=== PATIENT | female | born 1970 | race Caucasian/White ===

== ENCOUNTER 2024-01-09 16:19 | Emergency (ER) | payer MEDICAID ==
[~2024-01-09] VITALS: Ht 160 cm; Wt 68.0 kg
[2024-01-09 16:28] VITALS: TEMP 98.1
[2024-01-09] MEDS ORDERED: LORazepam 2 mg/ml vial IM ONE (16:50)
[2024-01-09] MEDS: proCHLORperazine 10 MG/2 ml inj IM ONE (17:03)
[2024-01-09] MEDS: LORazepam 1 MG tablet PO ONE (17:04)
[2024-01-09] MEDS: diphenhydrAMINE 50 mg/ml inj IM ONE (17:04)
[2024-01-09] MEDS ORDERED: iohexol 350MG/ML 100ml bottle IV ONE ×2 (18:13→18:24)
[2024-01-09 18:27] LABS: BASOPHILS # (AUTO) 0.1 X10'3 (0-0.2); BASOPHILS % (AUTO) 0.5 % (0-1); EOSINOPHILS # (AUTO) 0.2 X10'3 (0-0.9); EOSINOPHILS % (AUTO) 1.2 % (0-6); HEMATOCRIT 47.1 % (35.0-45.0); HEMOGLOBIN 15.6 g/dl (12.0-16.0); LYMPHOCYTES # (AUTO) 1.1 X10'3 (1.1-4.8); LYMPHOCYTES % (AUTO) 8.1 % (21-51); MEAN CORPUSCULAR HEMOGLOBIN 29.9 PG (27.0-31.0); MEAN CORPUSCULAR VOLUME 90.5 FL (78-98); MEAN PLATELET VOLUME 9.3 FL (7.4-10.4); MONOCYTES # (AUTO) 0.6 X10'3 (0-0.9); MONOCYTES % (AUTO) 4.4 % (2-12); NEUTROPHILS # (AUTO) 11.9 X10'3 (1.8-7.7); NEUTROPHILS % (AUTO) 85.8 % (42-75); PLATELET COUNT 243 X10'3 (140-440); RED BLOOD COUNT 5.21 X10'6 (4.20-5.60); RED CELL DISTRIBUTION WIDTH 14.3 % (11.5-14.5); WHITE BLOOD COUNT 13.9 X10'3 (4.5-11.0)
[2024-01-09 18:50] LABS: ALBUMIN 4.3 G/DL (3.4-5.0); ANION GAP 8 (8-16); BLOOD UREA NITROGEN 12 MG/DL (7-18); BUN/CREATININE RATIO 14.3 (10.0-20.0); CALCIUM 9.4 MG/DL (8.5-10.1); CHLORIDE 102 MMOL/L (99-107); CREATININE 0.84 MG/DL (0.40-0.90); GLUCOSE 144 MG/DL (70-104); POTASSIUM 3.9 MMOL/L (3.5-5.1); SODIUM 137 MMOL/L (135-145); TOTAL CARBON DIOXIDE 27.2 MMOL/L (24-32); eCRCL 63 ML/MIN; eGFR 70 ML/MIN
[2024-01-09 18:53] LABS: APTT 21 SECONDS (22-32); PROTHROMBIN TIME 10.9 SECONDS (9.0-12.0)
[2024-01-09 18:58] VITALS: BP 124/89; PULSE 87; RESP 16; O2SAT 98
== END 2024-01-09 19:03 | disposition short-term general hospital (02) ==
LOC: ER 16:20
DX: I60.9 Nontraumatic subarachnoid hemorrhage, unspecified (principal); R07.89 Other chest pain
CPT/HCPCS: 70450; 70496; 70498; 71045; 80048; 85025; 85610; 85730; 93005; 96372; 99285; J0780; J1200; J3490; Q9967